=== PATIENT | female | born 1975 | race Caucasian/White ===

== ENCOUNTER 2023-10-02 15:07 | Outpatient (CLI) | payer MEDICAID ==
[~2023-10-02 15:07] MED LIST: ACET-812 PO; ALBU8.5H17 IH; DIPH25CA83 PO; FLUO20CA39 PO; LEVO175T2 PO; QUVAR PO
== END 2023-10-02 23:59 | disposition home or self-care (01) ==
LOC: MRI 15:07
PROVIDERS: ATTEND Nurse Practitioner
DX: M51.37 Other intervertebral disc degeneration, lumbosacral region (principal); M51.16 Intervertebral disc disorders with radiculopathy, lumbar region; M46.87 Other specified inflammatory spondylopathies, lumbosacral region; M47.897 Other spondylosis, lumbosacral region; M54.59 Other low back pain; G95.81 Conus medullaris syndrome; R20.9 Unspecified disturbances of skin sensation
CPT/HCPCS: 72148